=== PATIENT | female | born 2005 | race Caucasian/White ===

== ENCOUNTER 2025-05-20 08:38 | Outpatient (OUT) | payer OTHER, BC, SELFPAY ==
[2025-05-20 09:23] LABS: Hematocrit 42.7 % (36.0-48.0); Hemoglobin 14.5 g/dL (12.0-16.0); Immature Granulocytes Abs Auto 0.01 10^3/uL (0.00-0.03); Immature Granulocytes Pct Auto 0.2 % (0.0-0.5); Lymphocytes Absolute Auto 2.1 10^3/uL (1.2-3.8); Mean Corpuscular HGB Conc 34.0 g/dL (29.9-35.2); Mean Corpuscular Hemoglobin 30.3 pg (26.7-34.0); Mean Corpuscular Volume 89.1 fL (81.0-99.0); Platelet Count 252 10^3/uL (150-450); Red Blood Count 4.79 10^6/uL (4.20-5.40); White Blood Count 5.7 10^3/uL (4.0-11.0)
[2025-05-20 09:54] LABS: Alanine Aminotransferase 23 U/L (14-59); Albumin Globulin Ratio 1.2; Albumin Level 4.3 g/dL (3.4-5.0); Alkaline Phosphatase 58 U/L (46-116); Anion Gap 12.3; Aspartate Amino Transferase 18 U/L (15-37); Blood Urea Nitrogen 9.0 mg/dL (7.0-18.0); Calcium 9.0 mg/dL (8.5-10.1); Carbon Dioxide 28.0 mmol/L (21.0-32.0); Chloride 105 mmol/L (98-107); Estimated GFR (African America >60 (>=60 mL/min/1.73m^2); Estimated GFR (Non-African Ame >60 (>=60 mL/min/1.73m^2); Globulin 3.5 g/dL; Glucose 82 mg/dL (74-106); Magnesium 1.9 mg/dL (1.8-2.4); Potassium 4.3 mmol/L (3.5-5.1); Sodium 141 mmol/L (136-145); TSH W/ REFLEX FT4 0.356 uIU/mL (0.358-3.740); Total Protein 7.8 g/dL (6.4-8.2)
[2025-05-20 10:19] LABS: Mono Screen NEGATIVE (NEGATIVE)
[2025-05-20 10:52] LABS: Folate 20.00 ng/mL (8.60-58.90)
[2025-05-21 10:08] LABS: Vitamin B12 430 pg/mL (232-1245)
== END 2025-05-20 08:39 | disposition home or self-care (01) ==
DX: R42 Dizziness and giddiness (principal); R53.83 Other fatigue; Z51.81 Encounter for therapeutic drug level monitoring; E56.9 Vitamin deficiency, unspecified; J35.1 Hypertrophy of tonsils
CPT/HCPCS: 36415; 80053; 82306; 82607; 82746; 83735; 84439; 84443; 85025; 86308

== ENCOUNTER 2025-06-19 10:22 | Outpatient (OUT) | payer BC, SELFPAY ==
[2025-06-19 11:23] LABS: Hematocrit 38.4 % (36.0-48.0); Hemoglobin 13.0 g/dL (12.0-16.0); Immature Granulocytes Abs Auto 0.01 10^3/uL (0.00-0.03); Immature Granulocytes Pct Auto 0.2 % (0.0-0.5); Lymphocytes Absolute Auto 1.5 10^3/uL (1.2-3.8); Mean Corpuscular HGB Conc 33.9 g/dL (29.9-35.2); Mean Corpuscular Hemoglobin 30.5 pg (26.7-34.0); Mean Corpuscular Volume 90.1 fL (81.0-99.0); Platelet Count 283 10^3/uL (150-450); Red Blood Count 4.26 10^6/uL (4.20-5.40); White Blood Count 4.1 10^3/uL (4.0-11.0)
[2025-06-19 13:44] LABS: Alanine Aminotransferase 23 U/L (14-59); Albumin Globulin Ratio 1.2; Albumin Level 4.1 g/dL (3.4-5.0); Alkaline Phosphatase 55 U/L (46-116); Anion Gap 11.4; Aspartate Amino Transferase 14 U/L (15-37); Blood Urea Nitrogen 8.0 mg/dL (7.0-18.0); Calcium 8.7 mg/dL (8.5-10.1); Carbon Dioxide 25.8 mmol/L (21.0-32.0); Chloride 107 mmol/L (98-107); Estimated GFR (African America >60 (>=60 mL/min/1.73m^2); Estimated GFR (Non-African Ame >60 (>=60 mL/min/1.73m^2); Globulin 3.3 g/dL; Glucose 81 mg/dL (74-106); Magnesium 1.9 mg/dL (1.8-2.4); Potassium 4.2 mmol/L (3.5-5.1); Sodium 140 mmol/L (136-145); Total Protein 7.4 g/dL (6.4-8.2)
[2025-06-19 14:16] LABS: Thyroid Stimulating Hormone 0.327 uIU/mL (0.358-3.740)
[2025-06-19 15:18] LABS: Mono Screen NEGATIVE (NEGATIVE)
[2025-06-20 07:08] LABS: Vitamin B12 436 pg/mL (232-1245)
[2025-06-22 20:08] LABS: Thyrotropin Receptor Ab, Serum <1.10 IU/L (0.00-1.75)
== END 2025-06-19 10:23 | disposition home or self-care (01) ==
LOC: LAB 10:30
DX: R42 Dizziness and giddiness (principal); R53.83 Other fatigue; Z51.81 Encounter for therapeutic drug level monitoring; E56.9 Vitamin deficiency, unspecified; R79.89 Other specified abnormal findings of blood chemistry; J35.1 Hypertrophy of tonsils
CPT/HCPCS: 36415; 80053; 82306; 82607; 82746; 83520; 83735; 84439; 84443; 84480; 85025; 86308